=== PATIENT | female | born 1970 | race Caucasian/White ===

== ENCOUNTER → 2017-01-16 | Outpatient (CLI) | payer OTHER | LOC: FIMAGING 07:29 | PROVIDERS: ATTEND Obstetrics & Gynecology | DX: Z12.31 Encounter for screening mammogram for malignant neoplasm of breast (principal) | CPT/HCPCS: G0202 ==

== ENCOUNTER 2017-12-22 12:45 | Emergency (ER) | payer OTHER ==
[2017-12-22 13:02] VITALS: BP 114/85
--- NOTE | 2017-12-22 13:32 | EDPHY ---
H & P Time Seen by Provider: 12/22/17 12:52 HPI/ROS: CHIEF COMPLAINT: Urinary frequency and urgency History by patient HISTORY OF PRESENT ILLNESS: 47-year-old woman presents complaining of urinary frequency, urgency dysuria and stress incontinence. Patient states that she has had ongoing symptoms of urinary frequency and some stress incontinence for many years and has been seen by urologist in the past but that over the past couple days this has gotten significantly worse and now she is having the burning and bladder discomfort. She denies any back pain or fever. She has had no nausea or vomiting. She has not taken anything for this. She says her OBGYN did a urine dip test for symptoms of frequency with which were less severe than today about a week ago and that was negative. Patient finished her menses for 5 days ago. She denies any vaginal discharge. She denies any concerns about sexually transmitted diseases. REVIEW OF SYSTEMS: As in HPI, and all other systems reviewed and are negative Smoking Status: Never smoked Physical Exam: General Appearance: Alert, well-appearing Head: normocephalic, atraumatic Eyes: Pupils equal and round, reactive to light, no pallor or injection. Mouth: Mucous membranes moist. Oropharynx clear Neck: No bony tenderness, full range of motion Respiratory: Normal, effort, lungs are clear to auscultation. No wheezes, rales or rhonchi. Cardiovascular: Regular rate and rhythm. S1, S2, no murmurs, gallops or rubs appreciated Gastrointestinal: Abdomen is soft and mild suprapubic tenderness, no masses, bowel sounds normal. Back: No CVA tenderness, no bony tenderness Neurological: Awake, alert and oriented x 3, cranial nerves 2-12 intact, no pronator drift, normal gait, Skin: Warm and dry, no rashes. Musculoskeletal: No deformities or tenderness. Extremities: full range of motion, no edema, DP2+ bilat Psychiatric: Patient has normal affect, there is no agitation. Constitutional: Initial Vital Signs Temperature (C) 36.8 C 12/22/17 12:57 Heart Rate 90 12/22/17 12:57 Respiratory Rate 16 12/22/17 12:57 Blood Pressure 114/85 H 12/22/17 12:57 O2 Sat (%) 98 12/22/17 12:57 O2 Delivery Mode Room Air Allergies/Adverse Reactions: No Known Allergies Allergy (Verified 12/22/17 13:02) Home Medications: Medication Instructions Recorded Nitrofurantoin Monohyd/M-Cryst 100 mg PO BID #10 capsule 12/22/17 [Macrobid 100 mg Capsule] Phenazopyridine HCl [Pyridium] 200 mg PO TID #6 tab 12/22/17 ZYRTEC 12/22/17 MDM/Departure - [facility] ED Course/Re-evaluation: 47-year-old woman comes in with symptoms were concerning for urinary tract infection, however she has a history of some chronic symptoms. Patient is nontoxic appears clinically well. Urine dip is positive but we have also sent for culture given the chronic urinary frequency and stress incontinence. She was started on Macrobid and we discussed return precautions and I recommend follow up with her manager primary and/or urologist for her ongoing symptoms.. - Depart Disposition: Home, Routine, Self-Care Clinical Impression: Urinary tract infection Condition: Good Instructions: Urinary Tract Infection in Women (ED) Additional Instructions: You were seen by Dr. Adriana Green today. Please take antibiotics as prescribed twice daily. I recommend taking probiotics in between doses of antibiotics to prevent yeast infection and diarrhea. You may take Pyridium for symptoms of urgency, stinging and burning and frequency. If her symptoms do not resolve I recommend following up with your hypo dipper or a urologist such as Dr. Braga. Return for any worsening or new concerns including but not limited to fever, nausea vomiting, inability to take medicines or fluids.. Prescriptions: Nitrofurantoin Monohyd/M-Cryst [Macrobid 100 mg Capsule] 100 mg PO BID #10 capsule Phenazopyridine HCl [Pyridium] 200 mg PO TID #6 tab Referrals: Tari Villarreal MD [Primary Care Provider] - As per Instructions Lynette Braga MD [Medical Doctor] - As per Instructions
== END 2017-12-22 13:40 | disposition home or self-care (01) ==
LOC: CED 12:45
DX: N39.0 Urinary tract infection, site not specified (principal); B96.20 Unspecified Escherichia coli [E. coli] as the cause of diseases classified elsewhere